=== PATIENT | female | born 1960 | race Caucasian/White ===

== ENCOUNTER → 2016-07-15 | Outpatient (CLI) | payer BC | LOC: BRMIMAGING 08:31 | PROVIDERS: ATTEND Registered Nurse | DX: R94.5 Abnormal results of liver function studies (principal); R93.2 Abnormal findings on diagnostic imaging of liver and biliary tract; N28.9 Disorder of kidney and ureter, unspecified | CPT/HCPCS: 76700-PO ==

== ENCOUNTER → 2016-07-27 | Outpatient (CLI) | payer BC ==
[~2016-07-27] MED LIST: IOPAMIDOL (ISOVUE-300) 100 ML BTL ONE
== END ==
LOC: CIMAGING 13:58
DX: D35.02 Benign neoplasm of left adrenal gland (principal)
CPT/HCPCS: 74170-PO; Q9967

== ENCOUNTER → 2017-01-20 | Outpatient (CLI) | payer BC | LOC: BRMIMAGING 11:03 | PROVIDERS: ATTEND Family Medicine | DX: Z12.31 Encounter for screening mammogram for malignant neoplasm of breast (principal) | CPT/HCPCS: G0202 ==

== ENCOUNTER → 2018-02-09 | Outpatient (CLI) | payer BC | LOC: BRMIMAGING 11:17 | PROVIDERS: ATTEND Physician Assistant | DX: Z12.31 Encounter for screening mammogram for malignant neoplasm of breast (principal) ==